=== PATIENT | male | born 1950 | race Caucasian/White ===

== ENCOUNTER 2021-07-05 11:54 | Outpatient (REF) | payer MEDICARE, SELFPAY ==
[2021-07-05 13:49] LABS: Vitamin B12 213 pg/mL (200-900)
== END 2021-07-05 11:55 | disposition home or self-care (01) ==
LOC: HO.LAB 11:54
PROVIDERS: PCP Internal Medicine; Visit Provider Psychiatry & Neurology Neurology
DX: G40.909 Epilepsy, unspecified, not intractable, without status epilepticus (principal)
CPT/HCPCS: 36415; 82607

== ENCOUNTER 2022-01-03 11:39 | Outpatient (REF) | payer MEDICARE, SELFPAY ==
[2022-01-03 13:38] LABS: Vitamin B12 > 2000 pg/mL (200-900)
== END 2022-01-03 11:40 | disposition home or self-care (01) ==
LOC: HO.LAB 11:39
PROVIDERS: Visit Provider Psychiatry & Neurology Neurology
DX: E53.8 Deficiency of other specified B group vitamins (principal)
CPT/HCPCS: 36415; 82607

== ENCOUNTER 2024-10-02 12:08 | Outpatient (AMB) | payer BC, SELFPAY ==
--- NOTE | 2024-10-02 12:12 | A.OFFVIS_ITS ---
Intake Visit Reasons: 6m SZ Accompanied by: Significant Other Allergies No Known Allergies Allergy (Verified 10/02/24 12:15) Medication List - Last Reconciled 10/02/24 by Quynh Plaza CNP lamotrigine 50 mg (2 x 25 mg) PO BID 90 days HPI Comments Details: 73-year-old RH man with Crohn's disese and epilepsy. He suffered from a convulsion in 1997, another one a few years later, who started having episodes in summer of 2020. These episodes had no known trigger and they were occuring a few times a week. Typically, it started with an odd smell (something burning), a feeling of being displaced , some verbalization or sound, and spaciness lasting for a few seconds or a second or two. He was here with his significant other. She may have noticed some episodes of him being spaced out for a few seconds, but he denied this. 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 He occasionally missed dose of lamotrigine at night. He was drinking 2 beers about 3 nights/week and occasionally smoking marijuana. He was under some stress. They were raising 17-year-old boy. [facility] Medical History (Updated 10/02/24 @ 12:15 by Quynh Plaza CNP) Alzheimer dementia Epilepsy Arachnoid cyst Cerebral microvascular disease Complex partial seizures Review of Systems Const Denies chills, Denies daytime sleepiness, Denies difficulty sleeping, Denies fatigue, Denies fever(s), Denies frequent falls, Denies headache(s), Denies increased appetite, Denies poor appetite, Denies snoring, Denies weakness, D enies weight gain and Denies weight loss Eyes Denies loss of vision ENT Denies vertigo, Denies dizziness and Denies headache(s) Card Denies chest pain at rest, Denies chest pain with activity, Denies syncope, Denies leg edema and Denies palpitations Resp Denies snoring GI Denies constipation, Denies heartburn, Denies diarrhea and Denies nausea Denies urinary frequency, Denies urinary incontinence and Denies urinary urgency Musc Denies abnormal gait, Denies numbness and Denies tingling Skin/Breast Denies dry skin and Denies rash Neuro Denies abnormal gait, Denies vertigo, Denies dizziness, Denies syncope, Denies frequent falls, Denies headache(s), Denies lack of coordination, Denies loss of vision, Denies memory loss, Denies numbness, Denies restless legs, Denies seizure-like activity, Denies tingling, Denies paresthesias, Denies tremor(s) and Denies weakness Psych Denies anxiety, Denies depression, Denies auditory hallucinations, Denies memory loss, Denies visual hallucinations and Denies suicidal ideation Endo Denies fatigue and Denies palpitations Physical Exam Const Other: General Appearance:? normal, in no acute distress. Skin:? no rashes, no significant birthmarks. Heart:? S1, S2 normal, no murmurs. Lungs:? clear anteriorly and posteriorly. Extremities:? no edema. Psych:? alert, oriented, cognitive function intact, cooperative with exam. Neuro Other: Mental Status:?Normal attention, orientation, and affect.? Cranial Nerves:?Pupils are equal, round and reactive to light. External occular muscles are intact. Visual leon are full. Face is symmetrical. Facial sensations are normal. Tongue is midline. Palate elevates symmetrically. Shoulder shrugging is normal. Hearing to bedside conversation is normal. Sensory Exam:?....? Coordination:?No ataxia,?no titubation.? Gait Exam: Within normal limits. Extrapyramidal System:?No tremor, rigidity with normal facial expressions.? Pronator Drift:?Not present.? Involuntary Movements:?No tremors seen.? Speech:?Normal.? Results Reviewed Results Reviewed: 48 hr EEG at [facility] in Mar 2021: left FT sharps Routine EEG at [facility] in Feb 2021: WNL MRI brain [facility] in Jan 2021: mild MVD, left ant temp arachonoid cyst Assessment & Plan Assessment & Plan (1) Epilepsy: Code(s): G40.909 - Epilepsy, unspecified, not intractable, without status epilepticus Category: Medical Qualifiers: Epilepsy type: unspecified Intractability: not intractable Status epilepticus: without status epilepticus Qualified Code(s): G40.909 - Epilepsy, unspecified, not intractable, without status epilepticus Plan: Continue lamotrigine 25mg 2 tablets twice a day. They were educated on this condition, symptoms, and treatment. He was educated on the importance of medication compliance and risk associated with missed doses , including seizures. (2) Complex partial seizures: Code(s): G40.209 - Localization-related (focal) (partial) symptomatic epilepsy and epileptic syndromes with complex partial seizures, not intractable, without status epilepticus Category: Medical (3) Cerebral microvascular disease: Code(s): I67.89 - Other cerebrovascular disease Category: Medical (4) Arachnoid cyst: Code(s): G93.0 - Cerebral cysts Category: Medical Plan . Coding Level of Care Code Est Pt Level 4 (89193) Diagnoses Nonintractable epilepsy without status epilepticus, unspecified epilepsy type G40.909 Epilepsy type: unspecified Intractability: not intractable Status epilepticus: without status epilepticus Complex partial seizures G40.209 Cerebral microvascular disease I67.89 Arachnoid cyst G93.0
== END 2024-10-02 12:33 | disposition home or self-care (01) ==
LOC: HO.HSM 12:09
PROVIDERS: PCP Nurse Practitioner Family; Referring Provider Nurse Practitioner Family; Visit Provider Registered Nurse
DX: G40.909 Epilepsy, unspecified, not intractable, without status epilepticus (principal); G40.209 Localization-related (focal) (partial) symptomatic epilepsy and epileptic syndromes with complex partial seizures, not intractable, without status epilepticus; I67.89 Other cerebrovascular disease; G93.0 Cerebral cysts
CPT/HCPCS: 99214

== ENCOUNTER 2025-01-01 13:00 | Outpatient (AMB) | payer BC, SELFPAY ==
--- NOTE | 2025-01-01 13:04 | MHC.OFFVIS ---
Intake Visit Reasons: 3 Months SZ Accompanied by: Significant Other Allergies No Known Allergies Allergy (Verified 01/01/25 13:09) Medication List - Last Reconciled 01/01/25 by Quynh Plaza CNP lamotrigine 50 mg (2 x 25 mg) PO BID 90 days sulfasalazine 1,000 mg PO BID HPI Comments Details: 73-year-old RH man with Crohn's disese and epilepsy. He suffered from a convulsion in 1997, another one a few years later, who started having episodes in summer of 2020. These episodes had no known trigger and they were occurring a few times a week. Typically, it started with an odd smell (something burning), a feeling of being displaced , some verbalization or sound, and spaciness lasting for a few seconds or a second or two. He was drinking 2 beers about 3 nights/week and smoking marijuana few nights a week also. He was under some stress related to 17-year-old boy they were raising. He was here with his significant other. He denied any missed dose of lamotrigine, but was sometimes taking dose a few hours late. His significant other has not noticed any further episodes of being spaced out, but she noted that he seemed to functioning slower overall. He felt that his speech had changed about 6-12 months ago and was more slurred. He was most concerned with cramping in hands, R > L, that has been ongoing for the last few months. It may happen about 1-2x/week and last about 30 seconds each time. He noticed that it happened after eating, while his significant other noted that it may happen after doing unusual strenuous activity, like chopping wood. He had two episodes within the last week where his right hand cramped and locked in curled position for few seconds. During one episode, he had feeling of shakiness inside hand and forearm. There was no visible tremor. Right hand may be bit weaker. 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 [facility] Medical History (Updated 01/01/25 @ 13:32 by Quynh Plaza CNP) Alzheimer dementia Epilepsy Arachnoid cyst Cerebral microvascular disease Complex partial seizures Review of Systems Const Denies chills, Denies daytime sleepiness, Denies difficulty sleeping, Denies fatigue, Denies fever(s), Denies frequent falls, Denies headache(s), Denies increased appetite, Denies poor appetite, Denies snoring, Denies weakness, Denies weight gain and Denies weight loss Eyes Denies loss of vision ENT Denies vertigo, Denies dizziness and Denies headache(s) Card Denies chest pain at rest, Denies chest pain with activity, Denies syncope, Denies leg edema and Denies palpitations Resp Denies snoring GI Denies constipation, Denies heartburn, Denies diarrhea and Denies nausea Denies urinary frequency, Denies urinary incontinence and Denies urinary urgency Musc Denies abnormal gait, Denies numbness and Denies tingling Skin/Breast Denies dry skin and Denies rash Neuro Denies abnormal gait, Denies vertigo, Denies dizziness, Denies syncope, Denies frequent falls, Denies headache(s), Denies lack of coordination, Denies loss of vision, Denies memory loss, Denies numbness, Denies restless legs, Denies seizure-like activity, Denies tingling, Denies paresthesias, Denies tremor(s) and Denies weakness Psych Denies anxiety, Denies depression, Denies auditory hallucinations, Denies memory loss, Denies visual hallucinations and Denies suicidal ideation Endo Denies fatigue and Denies palpitations Physical Exam Const Other: General Appearance:? normal, in no acute distress. Skin:? no rashes, no significant birthmarks. Heart:? S1, S2 normal, no murmurs. Lungs:? clear anteriorly and posteriorly. Extremities:? no edema. Psych:? alert, oriented, cognitive function intact, cooperative with exam. Neuro Other: Mental Status:?Normal attention, orientation, and affect.? Cranial Nerves:?Pupils are equal, round and reactive to light. External occular muscles are intact. Visual leon are full. Face is symmetrical. Facial sensations are normal. Tongue is midline. Palate elevates symmetrically. Shoulder shrugging is normal. Hearing to bedside conversation is normal. Sensory Exam:?....? Coordination:?No ataxia,?no titubation.? Gait Exam: Within normal limits. Extrapyramidal System:?No tremor, rigidity with normal facial expressions.? Pronator Drift:?Not present.? Involuntary Movements:?No tremors seen.? Speech:?Normal.? Results Reviewed Results Reviewed: 48 hr EEG at [facility] in Mar 2021: left FT sharps Routine EEG at [facility] in Feb 2021: WNL MRI brain [facility] in Jan 2021: mild MVD, left ant temp arachonoid cyst Assessment & Plan Assessment & Plan (1) Epilepsy: Code(s): G40.909 - Epilepsy, unspecified, not intractable, without status epilepticus Category: Medical Qualifiers: Epilepsy type: unspecified Intractability: not intractable Status epilepticus: without status epilepticus Qualified Code(s): G40.909 - Epilepsy, unspecified, not intractable, without status epilepticus Plan: Continue lamotrigine 25mg 2 tablets twice a day. He was educated on the importance of medication compliance and risk associated with missed doses, including seizures. EEG ordered. (2) Complex partial seizures: Code(s): G40.209 - Localization-related (focal) (partial) symptomatic epilepsy and epileptic syndromes with complex partial seizures, not intractable, without status epilepticus Category: Medical (3) Cerebral microvascular disease: Code(s): I67.89 - Other cerebrovascular disease Category: Medical Plan: He was advised to avoid/limit use of alcohol and marijuana. (4) Arachnoid cyst: Code(s): G93.0 - Cerebral cysts Category: Medical (5) Muscle spasm: Code(s): M62.838 - Other muscle spasm Category: Medical Plan: Reviewed labs ordered. (6) Carpal tunnel syndrome of right wrist: Code(s): G56.01 - Carpal tunnel syndrome, right upper limb Category: Medical Plan: NCV/EMG UE ordered. Plan . Orders: Orders Complete Blood Count Auto Diff Today M62.838 - Other muscle spasm Magnesium Today M62.838 - Other muscle spasm Creatine Kinase Total Today M62.838 - Other muscle spasm Vitamin B12 and Folate Today I67.89 - Other cerebrovascular disease, M62.838 - Other muscle spasm TSH reflex Free T4 Today M62.838 - Other muscle spasm NE electromyogram (EMG) Today G56.01 - Carpal tunnel syndrome, right upper limb Comprehensive Met. Panel Today M62.838 - Other muscle spasm Phosphorus Today M62.838 - Other muscle spasm EEG Routine Today G40.909 - Epilepsy, unspecified, not intractable, without status epilepticus NE nerve conduction velocity Today G56.01 - Carpal tunnel syndrome, right upper limb Coding Level of Care Code Est Pt Level 4 (77580) Diagnoses Nonintractable epilepsy without status epilepticus, unspecified epilepsy type G40.909 Epilepsy type: unspecified Intractability: not intractable Status epilepticus: without status epilepticus Complex partial seizures G40.209 Cerebral microvascular disease I67.89 Arachnoid cyst G93.0 Muscle spasm M62.838 Carpal tunnel syndrome of right wrist G56.01
== END 2025-01-01 13:50 | disposition home or self-care (01) ==
LOC: HO.HSM 13:01
PROVIDERS: PCP Nurse Practitioner Family; Visit Provider Registered Nurse
DX: G40.909 Epilepsy, unspecified, not intractable, without status epilepticus (principal); G40.209 Localization-related (focal) (partial) symptomatic epilepsy and epileptic syndromes with complex partial seizures, not intractable, without status epilepticus; I67.89 Other cerebrovascular disease; G93.0 Cerebral cysts; M62.838 Other muscle spasm; G56.01 Carpal tunnel syndrome, right upper limb
CPT/HCPCS: 99214

== ENCOUNTER 2025-01-01 13:00 | Outpatient (REF) | payer BC, SELFPAY ==
[2025-01-01 14:08] LABS: MANUAL DIFF FLAG NO
[2025-01-01 14:38] LABS: Hematocrit 44.1 % (42.0-52.0); Hemoglobin 14.4 g/dl (14.0-18.0); Imm Gran Abs Auto 0.04 X10*3/uL (0.00-0.03); Imm Gran Pct Auto 0.6 % (0.0-0.4); Lymphocytes Absolute Auto 1.2 X10*3/uL (1.2-4.9); Mean Corpuscular HGB Conc 32.7 g/dl (31.0-36.0); Mean Corpuscular Hemoglobin 31.8 pg (27.0-33.0); Mean Corpuscular Volume 97.4 fL (80.0-98.0); NRBC Abs Auto 0.000 X10*3/uL (0.0-0.012); NRBC Pct Auto 0.0 /100WBC (0.0-0.2); Platelet Count 157 X10*3/uL (160-400); Red Blood Count 4.53 X10*6/uL (4.60-5.80); White Blood Count 6.6 X10*3/uL (4.8-10.8)
[2025-01-01 15:14] LABS: Alanine Aminotransferase 32 U/L (0-40); Albumin Level 5.1 g/dL (3.5-5.0); Alkaline Phosphatase 77 U/L (39-117); Anion Gap 13 (12-20); Aspartate Amino Transferase 27 U/L (5-37); Blood Urea Nitrogen 17 mg/dL (9-16); Calcium 9.8 mg/dL (8.4-10.2); Carbon Dioxide 26 mmol/L (22-29); Chloride 108 mmol/L (96-108); Estimated Glomerular Filt Rate > 60; Magnesium 2.1 mg/dL (1.6-2.6); Potassium 4.7 mmol/L (3.3-5.1); Sodium 142 mmol/L (135-145); Total Protein 7.2 g/dL (6.5-8.0)
[2025-01-01 15:43] LABS: Folate 17.3 ng/mL (> or = 4.0); Vitamin B12 951 pg/mL (200-900)
--- OUTSIDE RECORDS SUMMARY | 2025-01-01 19:24 | XMS_ITS | Encounter Summary ---
Author Organization [facility] Address [address] [place] [address] Care Team Providers Care Pilot Highway Patrol Name Role Phone Santino Ledezma Unassigned Primary Care Provider U navailable Encounter Details Date Type Department Care Team (Latest Contact Info) Description 05/09/2021 Abstract [facility] CONVERSIONS Dental, Provider, DDS Social History Tobacco Use Types Packs/Day Years Used Date Smoking Tobacco: Never Assessed Comments Unknown Sex and Gender Information Value Date Recorded Sex Assigned at Choose not to disclose 12:58 PM EST Legal Sex Male 5:35 PM EDT Gender Identity Choose not to disclose 12:58 PM EST Sexual Orientation Choose not to disclose 2022 12:58 PM EST documented as of this encounter Plan of Treatment Not on file documented as of this encounter Visit Diagnoses Not on filedocumented in this encounter Care Teams Pilot [employer] Patrol Relationship Specialty Start Date End Date Santino Ledezma Unassigned PCP - General Family Medicine 06/12/22 documented as of this encounter
--- OUTSIDE RECORDS SUMMARY | 2025-01-01 19:24 | XMS_ITS | Clinical Summary ---
Author Organization [facility] Address [address] [place] [address] Care Team Providers Care Screw Supervisor Name Role Phone PcpSantino Unassigned Primary Care Provider U navailable Allergies No known active allergies Medications lamoTRIgine (LaMICtal) 25 MG tablet Take 1 tablet by mouth in the morning and at bedtime. 2 Active sulfaSALAzine (Azulfidine) 500 MG tablet 2 Active doxycycline (Adoxa) 100 MG tablet PLEASE SEE ATTACHED FOR DETAILED DIRECTIONS 4 Active Active Problems Problem Noted Date Diagnosed Date Crohn's disease (CMS/[facility]) 12/10/2023 Diverticular disease 12/10/2023 Eczema 12/10/2023 Memory impairment 12/10/2023 Immunizations Immunization Administration Dates Next Due Hep A / Hep B 08/25/2015 Influenza Quadrivalent Adjuvanted 11/23/2020 Influenza, High Dose Seasonal, Preservative Free 12/20/2018 Influenza, IIV3, injectable 11/24/2021 Pfizer Covid-19 Vaccine 12+ Bivalent 01/04/2022 Pfizer Covid-19 Vaccine 12+ swapnil-sucrose ([place] C ap) 07/05/2021 Family History Medical History Relation Name Comments Glaucoma Mother Relation Name Status Comments Mother Social History Tobacco Use Types Packs/Day Years Used Date Smoking Tobacco: Former Cigarettes Smokeless Tobacco: Never Alcohol Use Standard Drinks/Week Comments Yes 2 (1 standard drink = 0.6 oz pur e alcohol) Comments Unknown Sex and Gender Information Value Date Recorded Sex Assigned at Choose not to disclose 12:58 PM EST Legal Sex Male 5:35 PM EDT Gender Identity Choose not to disclose 12:58 PM EST Sexual Orientation Choose not to disclose 2022 12:58 PM EST Last Filed Vital Signs Vital Sign Reading Time Taken Comments Blood Pressure 138/82 03/27/2023 11:35 AM EST Pulse - - Temperature 36.2 C (97.2 F) 03/27/2023 11:35 AM EST Respiratory Rate - - Oxygen Saturation - - Inhaled Oxygen Concentration - - Weight - - Height - - Body Mass Index - - Plan of Treatment Health Maintenance Due Date Last Done Comments CT Colonography 1951 Colonoscopy 1951 Colorectal Cancer Screening 1951 Depression Screening 1951 FIT DNA/Cologuard 1951 FIT 1951 FOBT 1951 Lipid Panel 1951 SDOH Screening 1950 Sigmoidoscopy 1951 Alcohol/Substance Use Screening 1963 Hepatitis C Screening 12/13/1969 Hepatitis B Vaccines (3 of 3 - 19+ 3-dose series) 07/03/2023 05/08/2023, 04/06/2023, 08/25/2015 Zoster Vaccines (3 of 3) 01/16/2024 11/21/2023, 0603/2013 Dental Oral Exam 06/19/2024 12/20/2023, , 11/22/2022, Additional history exists Dental Prophylaxis 06/19/2024 12/20/2023, 0 06/11/2023, 11/22/2022, Additional history exists COVID-19 Vaccine ( season) 2024 12/11/2023, 01/22/2023, 01/04/2022, Additional history exists Influenza Vaccine (#1) 2024 4, 11/28/2022, 11/24/2021, Additional history exists Tobacco Screening 12/19/2024 12/20/2023 Dental X-Ray: Bitewings 12/20/2024 12/20/19 24, 11/22/2022, 11/14/2021, Additional history exists RSV Patients and Patients Aged 60 years or older (1 - 1-dose 75+ series) 12/13/2026 Dental X-Ray: Full Mouth 12/20/2026 024, 11/22/2022, 03/05/2017 DTaP/Tdap/Td Vaccines (2 - Td or Tdap) 11/07/2028 11/07/2018 Pneumococcal Vaccine: 50+ Years Completed 01/21/2018, 01/19/2017 Hepatitis A Vaccines Aged Out 05/08/2023, 04/06/2023, 08/25/2015 No longer eligible based on patient's age to complete this topic HIB Vaccines Aged Out No longer eligi ble based on patient's age to complete this topic HPV Vaccines Aged Out No longer eligi ble based on patient's age to complete this topic IPV Vaccines Aged Out No longer eligi ble based on patient's age to complete this topic Meningococcal B Vaccine Aged Out No l onger eligible based on patient's age to complete this topic Meningococcal Vaccine Aged Out No sandee dory eligible based on patient's age to complete this topic RSV under 20 months Aged Out No longe r eligible based on patient's age to complete this topic Rotavirus Vaccines Aged Out No longer eligible based on patient's age to complete this topic Procedures Procedure Name Priority Date/Time Associated Diagnosis Comments Full PROPHYLAXIS - ADULT Routine 024 10:30 AM EST INTRAORAL - COMPLETE SERIES OF RADIOGRAPHIC IMAGES Routine 12/20/2023 10:30 AM EST PERIODIC ORAL EVALUATION - ESTABLISHED PATIENT Routine 12/20/2023 10:30 AM EST from Last 3 Months or Most Recently Relevant to Health Maintenance Insurance DENTAL - [place] [address] [employer] [place] [employer] REPLACEMENT HMO * Guarantor: Dane Garcia Account Type Relation to Patient Date of Phone Billing Address Personal/Family Self [address] Care Teams Screw Supervisor Relationship Specialty Start Date End Date Santino Ledezma Unassigned PCP - General Family Medicine 06/12/22
--- OUTSIDE RECORDS SUMMARY | 2025-01-01 19:24 | XMS_ITS | Encounter Summary ---
Author Organization [facility] Address [address] [place] [address] Care Team Providers Care Property Utilization Manager Name Role Phone Santino Ledezma Unassigned Primary Care Provider U navailable Encounter Details Date Type Department Care Team (Latest Contact Info) Description 11/08/2020 Abstract [facility] CONVERSIONS Dental, Provider, DDS Social [...] on filedocumented in this encounter Care Teams Property Utilization Manager Relationship Specialty Start Date End Date Santino Ledezma Unassigned PCP - General Family Medicine 06/12/22 documented as of this encounter
--- OUTSIDE RECORDS SUMMARY | 2025-01-01 19:24 | XMS_ITS | Encounter Summary ---
Author Organization [facility] Address [address] [place] [address] Care Team Providers Care Intelligence Operations Name Role Phone Santino Ledezma Unassigned Primary Care Provider U navailable Encounter Details Date Type Department Care Team (Latest Contact Info) Description 11/14/2021 Abstract [facility] CONVERSIONS Dental, Provider, DDS Social [...] on filedocumented in this encounter Care Teams Intelligence Operations Relationship Specialty Start Date End Date Santino Ledezma Unassigned PCP - General Family Medicine 06/12/22 documented as of this encounter
--- OUTSIDE RECORDS SUMMARY | 2025-01-01 19:24 | XMS_ITS | Encounter Summary ---
Author Organization [facility] Address [address] [place] [address] Care Team Providers Care Paint Pourer Name Role Phone Santino Ledezma Unassigned Primary Care Provider U navailable Encounter Details Date Type Department Care Team (Latest Contact Info) Description 02/19/2019 Abstract [facility] CONVERSIONS Dental, Provider, DDS Social [...] on filedocumented in this encounter Care Teams Paint Pourer Relationship Specialty Start Date End Date Santino Ledezma Unassigned PCP - General Family Medicine 06/12/22 documented as of this encounter
== END 2025-01-01 13:01 | disposition home or self-care (01) ==
LOC: HO.LAB 13:00
PROVIDERS: PCP Nurse Practitioner Family; Visit Provider Registered Nurse
DX: G40.209 Localization-related (focal) (partial) symptomatic epilepsy and epileptic syndromes with complex partial seizures, not intractable, without status epilepticus (principal); I67.89 Other cerebrovascular disease; G93.0 Cerebral cysts; M62.838 Other muscle spasm; G56.01 Carpal tunnel syndrome, right upper limb; Z79.899 Other long term (current) drug therapy
CPT/HCPCS: 36415; 80053; 82550; 82607; 82746; 83735; 84100; 84443; 85025

== ENCOUNTER 2025-01-27 10:25 | Outpatient (REF) | payer BC, SELFPAY ==
--- NOTE | 2025-01-27 10:27 | EMG_ITS ---
Chief complaint: Numbness / weakness of bilateral arms Referred by: EMILY Boucher Procedure done: NCS and EMG of bilateral upper extremity Bilateral median and ulnar motor studies were performed. Bilateral median and ulnar mixed sensory studies were performed radial sensory studies were performed and needle examination was performed. Findings: Bilateral median distal latencies were significantly prolonged with significant reduction of amplitude and relatively normal conduction velocity. Ulnar study revealed mild slowing across elbow bilaterally. Ulnar distal latencies and amplitudes were relatively intact. Median mixed distal latencies were moderately prolonged with significantly slow conduction velocity. Ulnar mixed sensory studies revealed mild slowing of conduction velocity and delay of distal latencies. Long duration tall polyphasic motor unit potentials with decreased recruitment were noted widespread except pectoralis major. 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 I also noted widespread fasciculation in upper extremities in upper back and correspondingly neuropathic changes were noted on needle examination. My recommendation is to extent the test to lower extremities to rule out diffuse neuropathic process including motor neuron disease. Codin [id number] x2 MTDD
--- OUTSIDE RECORDS SUMMARY | 2025-01-27 13:07 | XMS_ITS | Encounter Summary ---
Author Organization [facility] Address [address] [place] [address] Care Team Providers Care Collar Stay Fuser Tender Name Role Phone Santino Ledezma Unassigned Primary [...] on filedocumented in this encounter Care Teams Collar Stay Fuser Tender Relationship Specialty Start Date End Date Santino Ledezma Unassigned PCP - General Family Medicine 06/12/22 01/12/25 documented as of this encounter
--- OUTSIDE RECORDS SUMMARY | 2025-01-27 13:07 | XMS_ITS | Encounter Summary ---
Author Organization [facility] Address [address] [place] [address] Care Team Providers Care Show Worker Name Role Phone Lonny Schulz DO Primary Care Provider [phone] Encounter Details Date Type Department Care Team (Late st Contact Info) Description 03/11/2024 Lab Requisition [facility] - Main Lab [address] [facility] [place] [phone] Nikita Victoria, MIGEL [address] [place] [address] Other lesions of oral mucosa Social History Tobacco Use Types Packs/Day Years Used Date Smoking Tobacco: Never Assessed Sex and Gender Information Value Date Recorded Sex Assigned at Not on file Legal Sex Male 11:49 AM EDT Gender Identity Not on file Sexual Orientation Not on file documented as of this encounter Plan of Treatment Upcoming Encounters Date Type Department Care Team (Late st Contact Info) Description 03/04/2025 1:00 PM EST Office Visit Gastroenterology - [address] [facility] [address] [place] [phone] Savanna Barros NP 299 [facility] [address] [place] [address] documented as of this encounter Procedures Procedure Name Priority Date/Time Associated Diagnosis Comments TISSUE EXAM Routine 03/11/2024 Other lesions of oral mucosa documented in this encounter Results * Tissue Exam (03/11/2024) Final Diagnosis Tongue, left lateral: -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 In the proper clinical setting the microscopic features could be suggestive of geographic tongue. Clinical correlation is needed. 11:20 AM [facility] Clinical Information 5 mm sessile mass ? fibroma 11:20 AM [facility] Gross Description A. Tongue, left lateral: Labeled with the patient's name and information . Received in formalin is a 0.55 cm in greatest diameter white, minimally bosselated portion of epithelial tissue which is inked blue at the base, bisected and submitted in entirety in one cassette, two pieces, multiple levels on one slide. TS 11:20 AM [facility] Disclaimer NOTE: The immunohistochemical tests and in situ hybridization tests were developed and their performance characteristics were determined by [facility]. They have not been cleared or approved by the U.S. Food and Drug Administration. The FDA has determined that such clearance or approval is not necessary. These tests are used for clinical purposes. They should not be regarded as investigational or for research. This laboratory is certified under the Clinical Laboratory Improvement Amendments of 1988 (CLIA) as qualified to perform high complexity clinical laboratory testing. (controls appropriate) Unless otherwise specified, all tissue is 10% NB formalin fixed and paraffin embedded. 11:20 AM [facility] Tissue Tongue structure / Unknown 03/11/2024 03/11/2024 2:50 PM EST Nikita Victoria DMD LAB PATHOLOGY ORDERABLES Kelsey breaux Result [facility] [address] [place] [address], documented in this encounter Visit Diagnoses Diagnosis Other lesions of oral mucosa documented in this encounter Care Teams Show Worker Relationship Specialty Start Date End Date Lonny Schulz DO [address] [place] [phone] PCP - General Family Medicine 07/11/24 documented as of this encounter
--- OUTSIDE RECORDS SUMMARY | 2025-01-27 13:07 | XMS_ITS | Clinical Summary ---
Author Organization [facility] Address [address] [facility] [address] [place] [address] Care Team Providers Care Commercial Real Estate Attorney Name Role Phone Unavailable Primary Care Provider Unavailabl e Allergies No known active allergies Medications lamoTRIgine (LaMICtal) 25 MG tablet Take 1 tablet by mouth in the morning and at bedtime. 2 Active sulfaSALAzine (Azulfidine) 500 MG tablet 2 Active doxycycline (Adoxa) 100 MG tablet PLEASE SEE ATTACHED FOR DETAILED DIRECTIONS 4 Active Active Problems Problem Noted Date Diagnosed Date Crohn's disease ([facility]) 12/10/2023 Diverticular disease 12/10/2023 Eczema [...] Zoster Vaccines (3 of 3) 01/16/2024 11/21/2023, 06/03/2013 Dental Oral Exam 06/19/2024 12/20/2023, , 11/22/2022, [...] Relevant to Health Maintenance Insurance DENTAL - [facility] [place] [address] [employer] [place]AC[employer] HMO
--- OUTSIDE RECORDS SUMMARY | 2025-01-27 13:07 | XMS_ITS | Encounter Summary ---
Author Organization [employer] [facility] Address [address] [facility] [address] [place] [address] Care Team Providers Care [employer]ffer[employer] Construction Supervisor Name Role Phone Santino Ledezma Unassigned Primary [...] on filedocumented in this encounter Care Teams [employer] Supervisor Relationship Specialty Start Date End Date Santino Ledezma Unassigned PCP - General Family Medicine 06/12/22 01/12/25 documented as of this encounter
--- OUTSIDE RECORDS SUMMARY | 2025-01-27 13:07 | XMS_ITS | Encounter Summary ---
Author Organization [employer] [facility] Address [address] [facility] [address] [place] [address] Care Team Providers Care Rental Agent Name Role Phone Santino Ledezma Unassigned Primary [...] on filedocumented in this encounter Care Teams Rental Agent Relationship Specialty Start Date End Date Santino Ledezma Unassdex PCP - General Family Medicine 06/12/22 01/12/25 documented as of this encounter
--- OUTSIDE RECORDS SUMMARY | 2025-01-27 13:07 | XMS_ITS | Encounter Summary ---
Author Organization [employer] [facility] Address [address] [facility] [address] [place] [address] Care Team Providers Care Recovery Operator Name Role Phone Santino Ledezma Unassigned Primary [...] on filedocumented in this encounter Care Teams Recovery Operator Relationship Specialty Start Date End Date Santino Ledezma Unassigned PCP - General Family Medicine 06/12/22 01/12/25 documented as of this encounter
--- OUTSIDE RECORDS SUMMARY | 2025-01-27 13:07 | XMS_ITS | Clinical Summary ---
Author Organization [facility] Address [address] [place] [address] Care Team Providers Care Subcontracts Manager Name Role Phone Lonny Schulz Primary Care Provider [phone] Medications sulfaSALAzine (AZULFIDINE) 500 mg tabletIndications :Crohn's disease of colon with complication (CMS/HCC V24, CMS/HCC V28) Take 2 tablets (1,000 mg total) by mouth 2 (two) times a day. 120 each 2 12/09/19 26 Active Social History Tobacco Use Types Packs/Day Years Used Date Smoking Tobacco: Never Assessed Sex and Gender Information Value Date Recorded Sex Assigned at Not on file Legal Sex Male 11:49 AM EDT Gender Identity Not on file Sexual Orientation Not on file Plan of Treatment Upcoming Encounters Date Type Department Care Team (Late st Contact Info) Description 03/04/2025 1:00 PM EST Office Visit Gastroenterology - [address] [phone] Savanna Barros NP [address] [address] Health Maintenance Due Date Last Done Comments Colorectal Cancer Screening: Colonoscopy 1950 DTaP,Tdap,and Td Vaccines (1 - Tdap) 12/13/1970 Pneumococcal Vaccine: 50+ Ye ars (1 of 1 - PCV) 12/13/2001 Zoster Vaccines (1 of 2) 12/13/2001 Abdominal Aortic Aneurysm (A AA) Screen 12/09/2023 Cholesterol Screening (Lipid Panel) 12/09/2023 Falls Risk Assessment 12/09/2023 Hepatitis C Screening 12/09/2023 Social Influencers of Health Screening 12/09/2023 Depression Screening 02/13/2024 COVID-19 Vaccine (1 - 2024-2 6 season) 2024 Influenza Vaccine (#1) 2024 RSV Immunization Adult Patie nts (1 - 1-dose 75+ series) 12/13/2026 HIB Vaccines Aged Out No longer eligi ble based on patient's age to complete this topic HPV Vaccines Aged Out No longer eligi ble based on patient's age to complete this topic Hepatitis A Vaccines Aged Out No long er eligible based on patient's age to complete this topic Hepatitis B Vaccines Aged Out No long er eligible based on patient's age to complete this topic IPV Vaccines Aged Out No longer eligi ble based on patient's age to complete this topic MMR Vaccines Aged Out No longer eligi ble based on patient's age to complete this topic Meningococcal ACWY Vaccine Aged Out N o longer eligible based on patient's age to complete this topic Meningococcal B Vaccine Aged Out No l onger eligible based on patient's age to complete this topic RSV Immunization Patients Un humera 20 months Aged Out No longer eligible b ased on patient's age to complete this topic Varicella Vaccines Aged Out No longer eligible based on patient's age to complete this topic Insurance [facility] Care Teams Subcontracts Manager Relationship Specialty Start Date End Date Lonny Schulz DO [address] [place] [phone] PCP - General Family Medicine 07/11/24
== END 2025-01-27 10:26 | disposition home or self-care (01) ==
LOC: HO.NEURO 10:25
PROVIDERS: PCP Nurse Practitioner Family; Visit Provider Registered Nurse
DX: G56.01 Carpal tunnel syndrome, right upper limb (principal)
CPT/HCPCS: 95886; 95911

== ENCOUNTER → 2025-01-27 10:27 | Outpatient (BNV) | payer BC, SELFPAY | PROVIDERS: PCP Nurse Practitioner Family; Visit Provider Psychiatry & Neurology Neurology | DX: G56.03 Carpal tunnel syndrome, bilateral upper limbs (principal) | CPT/HCPCS: 95886; 95909 ==